=== PATIENT | female | born 1995 | race Caucasian/White ===

== ENCOUNTER 2017-07-03 16:15 | Emergency (ER) | payer MEDICAID, OTHER ==
[~2017-07-03] VITALS: Ht 167.6 cm; Wt 93.0 kg
[2017-07-03 16:19] VITALS: Ht 167.6 cm; Wt 93.0 kg
[2017-07-03 17:05] LABS: BASOPHILS % 0.3 % (0.0-2.0); EOSINOPHILS # 0.1 10^3/ul (0.0-0.5); EOSINOPHILS % 0.6 % (0.0-7.0); HEMATOCRIT 29.1 % (37.0-47.0); HEMOGLOBIN 9.6 g/dl (12.0-16.0); LYMPHOCYTES % 18.4 % (15.0-51.0); MEAN CORPUSCULAR HEMOGLOBIN 28.5 pg (29.0-33.0); MEAN CORPUSCULAR VOLUME 86.4 fl (82.0-101.0); MEAN PLATELET VOLUME 12.4 fl (7.4-10.4); MONOCYTE # 0.5 10^3/ul (0.3-0.9); MONOCYTES % 4.7 % (0.0-11.0); NEUTROPHIL # 8.1 10^3/ul (1.6-7.5); NEUTROPHILS % 75.6 % (39.0-77.0); PLATELET COUNT 202 10^3/UL (140-415); RED BLOOD COUNT 3.37 10^6/ul (4.20-5.40); RED CELL DISTRIBUTION WIDTH 14.2 % (11.5-14.5); WHITE BLOOD COUNT 10.8 10^3/ul (4.8-10.8)
[2017-07-03 17:28] LABS: ADD UMIC YES; UR ASCORBIC ACID NEGATIVE (NEGATIVE); UR BILIRUBIN (Dip) NEGATIVE (NEGATIVE); UR BLOOD (Dip) 3+ mg/dL (NEGATIVE); UR CLARITY SLIGHTLY CLOUDY (CLEAR); UR COLOR YELLOW (YELLOW); UR GLUCOSE (Dip) NEGATIVE (NEGATIVE); UR KETONES (Dip) NEGATIVE (NEGATIVE); UR LEUKOCYTE ESTERASE (Dip) TRACE Leu/ul (NEGATIVE); UR NITRITE (Dip) NEGATIVE (NEGATIVE); UR RBC 1 /HPF (0-5); UR SPECIFIC GRAVITY (Dip) 1.013 (1.003-1.030); UR SQUAMOUS EPITHELIAL CELL FEW /HPF (FEW); UR TOTAL PROTEIN (Dip) NEGATIVE (NEGATIVE); UR UROBILINOGEN (Dip) 2+ mg/dL (NEGATIVE)
--- NOTE | 2017-07-03 17:33 | RADRPT ---
PROCEDURE: Obstetrical ultrasound CLINICAL INDICATION: Vaginal Bleed () TECHNIQUE: Multiple sonographic images of the pelvis were obtained. The images were reviewed on a PACS workstation. COMPARISON: None LMP: 02/28/2017 FINDINGS: The cervix is not well visualized. There is a single viable intrauterine gestation. Cardiac activity is present with 143 beats per minute. There is a vertex presentation. The placenta is fundal and right lateral in location. There is no evidence for an abruption or place nta previa. There is a low amount of amniotic fluid with a maximum vertical pocket of 9 mm. Measurements were made in order to determine age. The results are as follows (cm): BPD =4.02 HC =14.60 AC =12.40 FL =2.15 Estimated gestational age by ultrasound of approximately 17 weeks, 4 days. The estimated date of delivery by ultrasound is 12/07/2017. Estimated gestational age by LMP of approximately 17 weeks, 6 days. The estimated date of delivery by LMP is 12/05/2017. EFW = 190 grams (17th percentile) IMPRESSION: Single viable intrauterine gestation of approximately 17 weeks, 4 days . The estimated date of delivery is 12/07/2017 . Dating by ultrasound is within 2 days of dating by LMP. Low amount of amniotic fluid within maximum vertical pocket of 9 mm. Fundal and right lateral placenta without evidence of an abruption or placenta previa. RPTAT: EE Physician Silvestre Date Time Electronically viewed and signed by Physician Silvestre on 07/03/2017 17:32 /
[2017-07-03] MEDS ORDERED: DOCU-144 PO (18:27)
[2017-07-03] MEDS ORDERED: FER325 PO (18:27)
[2017-07-03] MEDS ORDERED: CEPH-443 PO (18:27)
[2017-07-03 19:38] VITALS: BP 118/62; PULSE 77; RESP 20; TEMP 98.3
--- NOTE | 2017-07-03 20:26 | ERD ---
ER Documentation Chief Complaint Date/Time DATE: 07/03/17 TIME: 20:17 Chief Complaint vaginal bleeding and pelvic pain x today 17 weeks HPI 22-year-old female who is 17 weeks presents complaining of vaginal bleeding and pelvic pain that started this morning. Patient states that it is mild and has not even soiled 1 pad. Patient states the pelvic pain is mild and describes as cramping intermittent. Patient states that about a week and half ago she had a D&C procedure and had Laminaria inserted. Patient states that she changed her mind therefore the doctor remove the 2 sticks there and then membranes got ruptured and she seen in the hospital, patient left AGAINST MEDICAL ADVICE last Friday. Patient states that she felt fine and started having bleeding again today. Patient denies any fevers, dysuria, flank pain, ROS All systems reviewed and are negative except as per history of present illness. Medications Home Meds Active Scripts Docusate Sodium* (Colace*) 100 Mg Capsule, 100 MG PO DAILY, #30 CAP Prov:AISHWARYA WALKER PA-C 07/03/17 Ferrous Sulfate* (Ferrous Sulfate*) 325 Mg Tabec, 325 MG PO DAILY, #30 TAB Prov:AISHWARYA WALKER PA-C 07/03/17 Cephalexin* (Keflex*) 500 Mg Capsule, 500 MG PO QID for 7 Days, CAP Prov:AISHWARYA WALKER PA-C 07/03/17 Allergies Allergies: Coded Allergies: No Known Allergy (Unverified , 07/03/17) PMhx/Soc Medical and Surgical Hx: pt denies Medical Hx Hx Alcohol Use: No Hx Substance Use: No Hx Tobacco Use: No Smoking Status: Never smoker Physical Exam Vitals Vital Signs Date Time Temp Pulse Resp B/P Pulse Ox O2 Delivery O2 Flow Rate FiO2 07/03/17 19:38 98.3 77 20 118/62 99 Room Air 07/03/17 16:19 99.0 90 18 127/58 99 Physical Exam GENERAL: well-developed/well-nourished, in no apparent distress, non-toxic appearing HENT: NC/AT, moist mucous membranes EYES: Conjunctiva normal NECK: Supple, no lymphadenopathy PULM: CTA bilaterally, no rales, rhonchi, or wheezing heard CV: Normal S1S2, RRR, good capillary refill GI: Soft, non-distended, tender to palpation pelvic Normal bowel sounds, no masses or organomegaly felt on exam No gross peritonitis, no bruits Negative Rovsing, negative Kumar, negative McBurney's point, Negative CVAT BACK: No masses EXT: No clubbing, cyanosis, or edema NEURO: Alert and Orientated SKIN: Intact, normal turgor PSYCH: Normal mood and mentation Result Diagram: 07/03/17 2270 Results 24 hrs Laboratory Tests Test 07/03/17 16:35 07/03/17 16:55 Urine Color YELLOW Urine Clarity SLIGHTLY CLOUDY Urine pH 6.0 Urine Specific [place] 1.013 Urine Ketones NEGATIVEmg/dL Urine Nitrite NEGATIVEmg/dL Urine Bilirubin NEGATIVEmg/dL Urine Urobilinogen 2+mg/dL Urine Leukocyte Esterase TRACELeu/ul Urine Microscopic RBC 1/HPF Urine Microscopic WBC 2/HPF Urine Squamous Epithelial Cells FEW/HPF Urine Hemoglobin 3+mg/dL Urine Glucose NEGATIVEmg/dL Urine Total Protein NEGATIVEmg/dl White Blood Count 10.810^3/ul Red Blood Count 3.3710^6/ul Hemoglobin 9.6g/dl Hematocrit 29.1% Mean Corpuscular Volume 86.4fl Mean Corpuscular Hemoglobin 28.5pg Mean Corpuscular Hemoglobin Concent 33.0g/dl Red Cell Distribution Width 14.2% Platelet Count 11193^3/UL Mean Platelet Volume 12.4fl Neutrophils % 75.6% Lymphocytes % 18.4% Monocytes % 4.7% Eosinophils % 0.6% Basophils % 0.3% Nucleated Red Blood Cells % 0.0/100WBC Neutrophils # 8.110^3/ul Lymphocytes # 2.010^3/ul Monocytes # 0.510^3/ul Eosinophils # 0.110^3/ul Basophils # 0.010^3/ul Nucleated Red Blood Cells # 0.010^3/ul Beta HCG, Quantitative 62202.0mIU/ml Procedures/MDM 22-year-old female who is 17 weeks presents complaining of vaginal bleeding and pelvic pain that started this morning. Patient states that it is mild and has not even soiled 1 pad. Patient states the pelvic pain is mild and describes as cramping intermittent. Patient states that about a week and half ago she had a D&C procedure and had Laminaria inserted. Patient states that she changed her mind therefore the doctor remove the 2 sticks there and then membranes got ruptured and she seen in the hospital, patient left AGAINST MEDICAL ADVICE last Friday. Patient states that she felt fine and started having bleeding again today. OB ultrasound: Single viable intrauterine gestation of approximately 17 weeks, 4 days . The estimated date of delivery is 12/07/2017 . Dating by ultrasound is within 2 days of dating by LMP. Low amount of amniotic fluid within maximum vertical pocket of 9 mm. Fundal and right lateral placenta without evidence of an abruption or placenta previa. Lab work was done today, patient had anemia at hemoglobin of 9.6 unnecessary to do transfusion. Beta-hCG level [id number] WNL I have consulted the OB labor is Dr. ayala who stated that patient needs to follow-up with the clinic at [place] to remove the otherLaminaria Patient is stable to be discharged home to follow-up at [place] discussed return to the ER for any worsening symptoms patient understands and agrees with plan Departure Diagnosis: Primary Impression: Vaginal bleeding in patient at less than 20 weeks ges... Additional Impression: Anemia Condition: Stable Patient Instructions: Anemia, Bleeding During Early , Possible Miscarriage (Threatened ) Additional Instructions: FOLLOW UP WITH YOUR PRIMARY CARE PHYSICIAN TOMORROW.Return to this facility if you are not improving as expected. Take all medicines as directed. Return to this facility if you are not improving as expected. AISHWARYA WALKER PA-C Jul 03, 2017 20:26
== END 2017-07-03 19:39 | disposition home or self-care (01) ==
LOC: FTE 16:15
DX: O20.9 Hemorrhage in early pregnancy, unspecified (principal); O99.012 Anemia complicating pregnancy, second trimester; D64.9 Anemia, unspecified; R10.2 Pelvic and perineal pain; Z3A.17 17 weeks gestation of pregnancy
CPT/HCPCS: 36415; 76801; 81001; 84702; 85025; 86900; 86901; Z7502